=== PATIENT | female | born 1985 | race Caucasian/White ===

== ENCOUNTER 2018-11-01 18:35 | Inpatient (IN) | payer BC ==
[2018-11-01] MEDS ORDERED: ELECTROLYTE-148 SOLN 500 ML IV ONE (19:21)
[2018-11-01] MEDS ORDERED: ELECTROLYTE-148 SOLN 1,000 ML IV SCH (19:30)
[2018-11-01 19:48] VITALS: BMI 26.4
--- NOTE | 2018-11-01 19:55 | HP ---
Past Medical History - Admission History of Present Illness: 33 yo @ 39 6/7 wks by first trimester ultrasound, EDC 11/02/2018 complicated by: 1. Subclinical hypothyroid, no meds - most recent TFTs 05/26/2018 - Free T3 2.60 ; TSH 6.66 2. History of spinal surgery - L5 Laminectomy 08/08/2001 Prior with epidural Patient reports chief complaint of contractions which began at 1530 She reports movement, denies leakage of fluid or vaginal bleeding. Limitations to Obtaining History: No Limitations - Past Medical History Cardiovascular: No: HTN Gastrointestinal: No: GERD ...: 3 ...Para: 1 ...Term: 1 ...: 0 ...Spon : 0 ...Induced : 0 ...Multiple Gestation: 0 ...LMP: 02/26/18 ... Weeks Gestation by Dates: 40 ...EDC by Dates: 11/01/18 ...EDC by Sono: 11/03/18 Endocrine: Yes: Hypothyroidism (subclinical, no meds) - Past Surgical History Hx Myomectomy: No Hx Transabdominal Cerclage: No Additional Surgical History: Spinal Surgery - Smoking History Smoking history: Never smoked - Alcohol/Substance Use Hx Alcohol Use: No History of Substance Use: reports: None - Social History History of Recent Travel: No Home Medications - Allergies Allergies/Adverse Reactions: Allergies Allergy/AdvReac Type Severity Reaction Status Date / Time No Known Allergies Allergy Verified 11/01/18 19:21 Family Disease History - Family Disease History Family History: Denies Review of Systems - Review of Systems Constitutional: reports: No Symptoms HENT: reports: No Symptoms Cardiovascular: reports: No Symptoms Respiratory: reports: No Symptoms Gastrointestinal: reports: No Symptoms Genitourinary: reports: No Symptoms Musculoskeletal: reports: No Symptoms Neurological: reports: No Symptoms Endocrine: reports: No Symptoms Psychiatric: reports: No Symptoms Physical Exam - Maternity Constitutional: Yes: Well Nourished, No Distress, Calm Cardiovascular: Yes: Regular Rate and Rhythm Lungs: Clear to auscultation - Abdominal Exam/OB Fundal Height: 40 Number of Fetuses: Single Presentation: Vertex Contractions: Yes Regularity: Regular Category: I Accelerations: Non-Uniform Decelerations: None - Vaginal Exam/OB Vaginal Bleediing: No Dilatation (cm): 5 Effacement (%): 6 Amniotic Membrane Status: Intact Presentation: Vertex/Position Station: -2 - Physical Exam Musculoskeletal: Yes: WNL Extremities: Yes: WNL Psychiatric: Yes: Alert, Oriented - Labs Lab Results: PNL - A positive, antibody negative; RPR NR; HIV neg; HBs Ag neg; HCV neg; Varicella Immune; Rubella Immune; GCT 70; Sequential 1&2 WNL; Anatomy WNL; GBS neg Hemorrhage Risk Assessment - Risk Factors Medium Risk Factors: Yes: None High Risk Factors: Yes: None Risk Score: 1 Risk Level: Medium Risk Assessment/Plan 33 yo @ 39 6/7 wks active labor 1. Admit to L&D 2. Consents reviewed and signed 3. GBS negative 4. Will offer pain medication upon request 5. Will proceed with expectant management
[2018-11-01 20:00] LABS: BASO % 0.4 % (0-2.0); EOS % 0.4 % (0-4.5); HEMATOCRIT 31.8 % (32.4-45.2); HEMOGLOBIN 10.7 GM/dL (10.7-15.3); LYMPH % 14.6 % (8-40); MCH 31.6 pg (25.7-33.7); MCHC 33.7 g/dl (32.0-36.0); MEAN PLT VOLUME 8.7 fl (7.5-11.1); MONO % 7.8 % (3.8-10.2); NEUT % 76.8 % (42.8-82.8); PLATELET COUNT 356 K/MM3 (134-434); RBC 3.38 M/mm3 (3.60-5.2); RDW 13.9 % (11.6-15.6); WHITE BLOOD COUNT 13.3 K/mm3 (4.0-10.0)
[2018-11-01] MEDS ORDERED: FENTANYL/BUPIVACAINE/NS/PF - PCEA - 50 ML DISP.SYRIN EP ONE (20:06)
[2018-11-01] MEDS ORDERED: BUPIVACAINE HCL/PF 2.5 MG/ML - 30 ML VIAL IJ ONE (20:09)
[2018-11-01] MEDS ORDERED: LIDO 2%/EPI 1:200000 PRESRVFRE (20 ML SDVIAL) ONE (20:09)
[2018-11-01 20:10] LABS: INR 0.97 (0.83-1.09); PROTHROMBIN TIME (PATIENT) 11.4 SEC (9.7-13.0)
[2018-11-01 20:12] LABS: ACTIVATED PTT 26.2 SECONDS (25.2-36.5)
[2018-11-01] MEDS ORDERED: BUTORPHANOL TARTRATE 1 MG/ML VIAL ONE ×2 (20:25)
[2018-11-01] MEDS ORDERED: PROMETHAZINE HCL 25 MG/1 ML VIAL ONE (20:26)
[2018-11-01 20:34] LABS: BLOOD UREA NITROGEN 10.2 mg/dL (7-18); CALCIUM 8.7 mg/dL (8.5-10.1); CREATININE 0.7 mg/dL (0.55-1.3); POTASSIUM 3.9 mmol/L (3.5-5.1)
[2018-11-01] MEDS ORDERED: PROMETHAZINE HCL 25 MG/1 ML VIAL IVPB ONE (20:35)
[2018-11-01] MEDS ORDERED: BUTORPHANOL TARTRATE 2 MG/ML VIAL IVPUSH ONE (20:35)
[2018-11-01] MEDS ORDERED: OXYTOCIN 20 UNITS in 0.9% NS 20 UNIT/1,000 ML INFUS.BAG IV ONE (22:26)
[2018-11-01] MEDS ORDERED: LIDOCAINE HCL 1% PRESERVATIVE FREE - 30ML VIAL ONE (22:59)
[2018-11-01] MEDS ORDERED: BENZOCAINE 28 GM HEMORRHOIDAL OINTMENT TP PRN (23:18)
[2018-11-01] MEDS ORDERED: METHYLERGONOVINE MALEATE 0.2 MG/1 ML AMP IM PRN (23:18)
[2018-11-01] MEDS ORDERED: BISACODYL 10 MG SUPP.RECT RC PRN (23:18)
[2018-11-01] MEDS ORDERED: BENZOCAINE 20% 57 GM BOTTLE TP PRN (23:18)
[2018-11-01] MEDS ORDERED: WITCH HAZEL 50% (TUCKS) 40 PAD/JAR PAD TP PRN (23:18)
--- NOTE | 2018-11-01 23:18 | PN ---
Delivery - Delivery Vaginal Delivery: No Problems Type of Anesthesia: None Episiotomy/Laceration: 1st degree EBL (cc): 300 Delivery, Single - Stages of Labor Date 1st Stage Initiatied: 11/01/18 Time 1st Stage Initiated: 15:30 Date 2nd Stage Initiated: 11/01/18 Time 2nd Stage Initiated: 22:45 Date of Delivery: 11/01/18 Time of Delivery: 22:56 Date Placenta Delivered: 11/01/18 Time Placenta Delivered: 22:03 Placenta: Yes: Expressed - Condition of Infant Gender: Male Position: Left, OA Total Hours ROM (Hrs/Mins): 2 hours 33 minutes - 1 Minute Total Score: 9 5 Minutes Total Score: 9 - [place] Feeding Plan Initial Plan: Exclusive throughout hospitalization Remarks - Remarks Remarks: Patient progressed to fully dilated and at 2256 via delivered a viable male in RACHEL position, APGARs 9,9. Weight and length unknown at this time. Head delivered spontaneously followed by shoulders and body without difficulty. with spontaneous cry and placed on mother's abdomen. Nose and mouth was bulb suctioned. Cord was clamped and cut. Perineum and vagina examined, a first degree laceration was noted and repaired in the usual fashion. Placenta was delivered spontaneously and intact. 20 units of pitocin in 1 L IVF was given. All counts correct x 2. Mother and infant stable in LDR. EBL 300cc.
[2018-11-01] MEDS: D5W-LR W/ 20 UNITS OXYTOCIN 20 UNIT/1,000 ML INFUS.BAG IV SCH (23:30)
[2018-11-01] MEDS: IBUPROFEN 600 MG TABLET (FP) PO PRN (23:30)
[2018-11-01] MEDS ORDERED: IBUPROFEN 600 MG TABLET (FP) PO ONE (23:32)
[2018-11-02] MEDS ORDERED: OXYTOCIN 20 UNITS in 0.9% NS 20 UNIT/1,000 ML INFUS.BAG IV ONE (00:34)
[2018-11-02] MEDS: ACETAMINOPHEN 325 MG TABLET (FP) PO PRN ×2 (07:30→21:31)
[2018-11-02] MEDS: IBUPROFEN 600 MG TABLET (FP) PO PRN ×2 (07:30→21:32)
[2018-11-02 08:15] LABS: BASO % 0.3 % (0-2.0); EOS % 0.2 % (0-4.5); HEMATOCRIT 24.8 % (32.4-45.2); HEMOGLOBIN 8.5 GM/dL (10.7-15.3); LYMPH % 11.1 % (8-40); MCHC 34.4 g/dl (32.0-36.0); MEAN CELL VOLUME 93.1 fl (80-96); MEAN PLT VOLUME 8.5 fl (7.5-11.1); MONO % 6.8 % (3.8-10.2); NEUT % 81.6 % (42.8-82.8); PLATELET COUNT 306 K/MM3 (134-434); RBC 2.67 M/mm3 (3.60-5.2); RDW 13.6 % (11.6-15.6); WHITE BLOOD COUNT 18.3 K/mm3 (4.0-10.0)
--- NOTE | 2018-11-02 09:15 | PN ---
Post Progress Note - Subjective Subjective: Patient without acute complaints. Reports tolerating oral intake without nausea or vomiting. Ambulating without dizziness. Denies fevers or chills. Pain well controlled with oral pain medication. without difficulty. Passing flatus. Post Day: 1 Type of Delivery: Vital Signs: Vital Signs Temperature 98.2 F 11/02/18 05:45 Pulse Rate 78 11/02/18 05:45 Respiratory Rate 18 11/02/18 05:45 Blood Pressure 97/64 11/02/18 05:45 O2 Sat by Pulse Oximetry (%) 98 11/02/18 00:15 Breast Exam: Yes: Soft Uterus: Yes: Fundus Firm, Fundus below umbilicus Abdomen/GI: Yes: Abdomen soft, Passing flatus, Tolerating PO. No: Abdominal Distention, Tender Lochia: Yes: Rubra Lochia, amount: Small Extremities: Yes: Calves non-tender, Edema (trace) Perineum: Yes: Laceration Activity: Ambulating - Labs Labs: CBC WBC 18.3 K/mm3 (4.0-10.0) H 11/02/18 07:48 RBC 2.67 M/mm3 (3.60-5.2) L 11/02/18 07:48 Hgb 8.5 GM/dL (10.7-15.3) L 11/02/18 07:48 Hct 24.8 % (32.4-45.2) L D 11/02/18 07:48 MCV 93.1 fl (80-96) 11/02/18 07:48 MCH 32.0 pg (25.7-33.7) 11/02/18 07:48 MCHC 34.4 g/dl (32.0-36.0) 11/02/18 07:48 RDW 13.6 % (11.6-15.6) 11/02/18 07:48 Plt Count 306 K/MM3 (134-434) 11/02/18 07:48 MPV 8.5 fl (7.5-11.1) 11/02/18 07:48 Absolute Neuts (auto) 15.0 K/mm3 (1.5-8.0) H 11/02/18 07:48 Neutrophils % 81.6 % (42.8-82.8) 11/02/18 07:48 Lymphocytes % 11.1 % (8-40) D 11/02/18 07:48 Monocytes % 6.8 % (3.8-10.2) 11/02/18 07:48 Eosinophils % 0.2 % (0-4.5) 11/02/18 07:48 Basophils % 0.3 % (0-2.0) 11/02/18 07:48 Nucleated RBC % 0 % (0-0) 11/02/18 07:48 Assessment/Plan 33 yo PPD # 1 s/p , afebrile, vital signs stable, asymptomatic anemia, doing well 1. Continue routine care. 2. AM CBC with mild anemia, will monitor for signs for anemia 3. Rh positive status, no rhogam indicated. 4. Encourage ambulation 5. Continue oral pain medication 6. Anticipate discharge home day #2
[2018-11-02] MEDS: PRENATAL VITAMINS W/ FOLIC ACID TABLET (FP) PO SCH (09:25)
[2018-11-02] MEDS ORDERED: SENNOSIDES/DOCUSATE COMBO (SENNA PLUS) TABLET (UD) PO PRN (22:00)
[2018-11-02] MEDS: D5W-LR W/ 20 UNITS OXYTOCIN 20 UNIT/1,000 ML INFUS.BAG IV SCH (23:46)
[2018-11-03 07:02] LABS: HEMATOCRIT 24.9 % (32.4-45.2); HEMOGLOBIN 8.3 GM/dL (10.7-15.3); MCH 31.7 pg (25.7-33.7); MCHC 33.4 g/dl (32.0-36.0); MEAN CELL VOLUME 94.9 fl (80-96); MEAN PLT VOLUME 8.4 fl (7.5-11.1); PLATELET COUNT 290 K/MM3 (134-434); RBC 2.62 M/mm3 (3.60-5.2); WHITE BLOOD COUNT 12.1 K/mm3 (4.0-10.0)
--- NOTE | 2018-11-03 07:14 | DS ---
Physical Exam-INTERNAL AUDIT DIRECTOR Vital Signs: Vital Signs Temperature 97.8 F 11/02/18 22:00 Pulse Rate 78 11/02/18 22:00 Respiratory Rate 18 11/02/18 22:00 Blood Pressure 100/57 L 11/02/18 22:00 O2 Sat by Pulse Oximetry (%) 98 11/02/18 00:15 Constitutional: Yes: Well Nourished, No Distress, Calm Eyes: Yes: WNL, Conjunctiva Clear, EOM Intact HENT: Yes: WNL, Atraumatic, Normocephalic Neck: Yes: WNL, Supple, Trachea Midline Cardiovascular: Yes: WNL, Regular Rate and Rhythm Respiratory: Yes: WNL, Regular, CTA Bilaterally Gastrointestinal: Yes: WNL ...Rectal Exam: Yes: WNL Renal/: Yes: WNL ....Post : Yes: Uterus firm, Uterus non-tender, Slight lochia rubra Breast(s): Yes: WNL Musculoskeletal: Yes: WNL Extremities: Yes: WNL Edema: No Integumentary: Yes: WNL Neurological: Yes: WNL, Alert, Oriented ...Motor Strength: WNL Psychiatric: Yes: WNL, Alert, Oriented Labs: CBC, BMP 11/01/18 19:45 Delivery - Delivery Vaginal Delivery: No Problems Type of Anesthesia: Local Episiotomy/Laceration: 1st degree EBL (cc): 300 Delivery, Single - Stages of Labor Date 1st Stage Initiatied: 11/01/18 Time 1st Stage Initiated: 15:30 Date 2nd Stage Initiated: 11/01/18 Time 2nd Stage Initiated: 22:45 Date of Delivery: 11/01/18 Time of Delivery: 22:56 Time Placenta Delivered: 22:03 Placenta: Yes: Expressed - 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 Gender: Male Position: Left, OA Total Hours ROM (Hrs/Mins): 2 hours 33 minutes - 1 Minute Total Score: 9 5 Minutes Total Score: 9 - [place] Feeding Plan Initial Plan: Exclusive throughout hospitalization Discharge Summary Reason For Visit: LABOR Procedures: Principal: Condition: Good - Instructions Diet, Activity, Other Instructions: regular diet, no intercourse, follow up office 4 weeks, if fever, pain, heavy vaginal bleeding call Referrals: Jenna Aguirre MD [Staff Physician] - Disposition: HOME - Home Medications Comprehensive Discharge Medication List: Ambulatory Orders Ibuprofen [Motrin -] 600 mg PO QID #28 tablet 11/02/18
[2018-11-03 07:50] VITALS: BP 92/61; PULSE 88; TEMP 98.4
[2018-11-03] MEDS: PRENATAL VITAMINS W/ FOLIC ACID TABLET (FP) PO SCH (09:11)
== END 2018-11-03 14:00 | disposition home or self-care (01) | DRG 807 ==
LOC: JDEL 18:35 → JLDR 18:36 → J3W 11-02 01:15
PROVIDERS: ADMIT Obstetrics & Gynecology; ATTEND Obstetrics & Gynecology
PROC: 10E0XZZ Delivery of Products of Conception, External Approach (ICD-10-PCS; principal; 2018-11-01)
PROC: 0HQ9XZZ Repair Perineum Skin, External Approach (ICD-10-PCS; 2018-11-01)
DX: O99.284 Endocrine, nutritional and metabolic diseases complicating childbirth (principal); Z37.0 Single live birth; E02 Subclinical iodine-deficiency hypothyroidism; O70.0 First degree perineal laceration during delivery; Z3A.39 39 weeks gestation of pregnancy
CPT/HCPCS: 36415; 59409; 80048; 85025; 85027; 85610; 85730; 86593; 86850; 86900; 86901; 87389

== ENCOUNTER 2019-02-21 11:14 | Emergency (ER) | payer BC ==
[2019-02-21 11:31] VITALS: BP 110/75; PULSE 70; TEMP 98.6; BMI 23.0
[2019-02-21] MEDS ORDERED: ACETAMINOPHEN 500 MG TABLET (FP) PO ONE (12:15)
--- NOTE | 2019-02-21 12:15 | PDOC ---
History of Present Illness - General Chief Complaint: Injury Stated Complaint: FALL BANGED HEAD AND LEFT KNEE Time Seen by Provider: 02/21/19 11:47 - History of Present Illness Initial Comments: 02/21/19 14:02 Chief complaint: Headache HPI: Immediately HOUSEKEEPING/LAUNDRY, the patient slipped on ice, fell and struck her head. No loss of consciousness. Complains of severe headache, photophobia, but no focal neurologic symptoms or unsteadiness of gait Review of systems: Also admits injuries to her right wrist and left knee not impacting function. She is still able to ambulate normally. In addition, denies chest pain, shortness of breath, abdominal pain, spine or pelvic pain, diplopia, blurred vision, numbness, tingling, pain, or weakness of the extremities. Past medical history: Hypothyroidism, otherwise healthy Social/family history reviewed and noncontributory Physical exam: Alert and oriented well-developed well-nourished no acute distress cheerful and cooperative Afebrile, vital signs normal Head atraumatic. There is no evidence of contusion, ecchymosis, hematoma, abrasion, or laceration PERRLA, fundi benign with sharp disc margins and good central venous pulsations. EOMs full without diplopia. Visual leonard intact to confrontation. ENT clear Neck without tenderness or deformity, full range of motion without pain Chest clear, full breath sounds bilaterally, no rib cage or chest wall tenderness or deformity CV regular without murmur rub or gallop pulses full and symmetric no JVD or edema no bruits Abdomen soft nontender without mass organomegaly. No CVAT Neurological C2 to 12 intact. Strength full and symmetric. No focal sensory or motor deficits. Cerebellar function intact. Gait stable and unimpaired Extremities: There is mild tenderness over the distal radius, right wrist. There is no swelling, deformity, or other sign of acute fracture. Pulses are full. No distal sensory or motor deficits. Left knee has abrasion inferior and lateral to the patella, approximately 1 cm in diameter, superficial. There is no swelling or effusion. There is no deformity. There is mild stress tenderness of the medial collateral ligament but no laxity. Lateral collateral without stress tenderness or laxity. Lockman negative. Patella and patellar retinaculum intact and nontender. Impression: Head injury, minor concussion, rule out bleed. Minor contusions and abrasions right wrist and left knee. Plan: Head CT. Abrasion cleaned and dressed. Sreedhar to right wrist and left knee. Rest and ice. Follow-up primary physician. Return to ER if further symptoms.. Past History - Past Medical History Allergies/Adverse Reactions: Allergies Allergy/AdvReac Type Severity Reaction Status Date / Time No Known Allergies Allergy Verified 11/01/18 19:21 Home Medications: Ambulatory Orders Ibuprofen [Motrin -] 600 mg PO QID #28 tablet 11/02/18 Asthma: No Cancer: No Cardiac Disorders: No COPD: No Diabetes: No HTN: No Seizures: No Thyroid Disease: Yes - Psycho Social/Smoking Cessation Hx Smoking History: Never smoked Information on smoking cessation initiated: No Hx Alcohol Use: No Drug/Substance Use Hx: No Hx Substance Use Treatment: No *Physical Exam - Vital Signs Last Vital Signs Temp Pulse Resp BP Pulse Ox 98.6 F 70 16 110/75 100 02/21/19 11:16 02/21/19 11:16 02/21/19 11:16 02/21/19 11:16 02/21/19 11:16 Medical Decision Making - Medical Decision Making 02/21/19 14:[address] is negative. Abrasion of the left knee was cleaned and dressed with bacitracin. An Sreedhar wrap was applied Sreedhar wrap was also applied to the right wrist Diagnoses: Possible minor concussion, contusions of the right wrist and left knee, abrasion of the left knee. Patient improved after the administration of Tylenol. To continue analgesics, rest, and avoidance of light. To follow-up primary physician. If symptoms worsen or additional symptoms develop, instructed to return to ER immediately. Fully ambulatory and in no significant pain or distress to discharge to follow- up as directed Discharge - Discharge Information Problems reviewed: Yes Clinical Impression/Diagnosis: Multiple contusions Head injury Qualifiers: Encounter type: initial encounter Qualified Code(s): S09.90XA - Unspecified injury of head, initial encounter Condition: Stable Disposition: HOME - Admission No - Follow up/Referral - Patient Discharge Instructions Patient Printed Discharge Instructions: DI for Contusion, DI for Closed Head Injury, How to Apply an Sreedhar Wrap Additional Instructions: Rest, Tylenol, Motrin, Advil, ibuprofen, naproxen, or Aleve as needed for headache Avoid excessive visual stimulation such as television, computer screens, cell phones. Intermittent ice to the knee and the wrist. Compression bandages as recommended. Removed periodically and reapply. If additional symptoms develop, return to ER. Otherwise follow-up with primary physician 2 to 3 days. - Post Discharge Activity Work/Back to School Note: Back to Work
[2019-02-21] MEDS ORDERED: ACETAMINOPHEN 500 MG TABLET (FP) ONE (12:17)
== END 2019-02-21 14:20 | disposition home or self-care (01) ==
LOC: FER 11:14
DX: S09.90XA Unspecified injury of head, initial encounter (principal); W00.0XXA Fall on same level due to ice and snow, initial encounter; Y93.89 Activity, other specified; Y92.410 Unspecified street and highway as the place of occurrence of the external cause
CPT/HCPCS: 70450-TC; 84703; 99283-25